=== PATIENT | female | born 1935 | race Caucasian/White ===

== ENCOUNTER 2022-11-30 07:55 | Day surgery (SDC) | payer MEDICARE, OTHER ==
[2022-11-30] VITALS (7 sets, daily range): BP systolic 99–132; BP diastolic 43–95; PULSE 73–89; RESP 16; TEMP 98.5; O2SAT 94–97
[~2022-11-30] VITALS: Ht 152.4 cm; Wt 68.6 kg
[2022-11-30] MEDS ORDERED: VITA0.4T18 PO (08:32)
[2022-11-30] MEDS ORDERED: FURO40TA4 PO (08:32)
[2022-11-30] MEDS ORDERED: LEVO112T5 PO (08:32)
[2022-11-30] MEDS ORDERED: ASCO-283 PO (08:32)
[2022-11-30 12:14] LABS: GLUCOSE,BODY FLUID 99 MG/DL; LDH,BODY FLUID 83 U/L; TOTAL PROTEIN,BODY FLUID 2.7 G/DL
[2022-11-30 12:58] LABS: LYMPHOCYTES,BODY FLUID 64 %; MONOCYTES,BODY FLUID 22 %; NEUTROPHILS,BODY FLUID 14 %
[2022-11-30 12:59] LABS: BFAPPEAR HAZY; BFCOLOR YELLOW; BFSOURCE LEFT PLEURAL FLD; BFVOLUME 58 ML
[2022-11-30 13:00] LABS: BF RBC COUNT 390 /CU MM; BF WBC COUNT 225 /CU MM (0-1000)
== END 2022-11-30 11:18 | disposition home or self-care (01) ==
LOC: SSTAY O 07:55
PROVIDERS: ATTEND Radiology Vascular & Interventional Radiology
DX: J90 Pleural effusion, not elsewhere classified (principal); E78.5 Hyperlipidemia, unspecified; E03.9 Hypothyroidism, unspecified; I25.10 Atherosclerotic heart disease of native coronary artery without angina pectoris; Z98.890 Other specified postprocedural states; Z79.899 Other long term (current) drug therapy
CPT/HCPCS: 32555; 82945; 83615; 84157; 87070; 89051; C1729

== ENCOUNTER 2023-03-29 07:22 | Observation (INO) | payer MEDICARE, OTHER ==
[~2023-03-29] VITALS: Ht 165.1 cm; Wt 69.1 kg
[2023-03-29] VITALS (28 sets, daily range): BP systolic 103–177; BP diastolic 47–113; PULSE 56–80; RESP 8–22; TEMP 97.6; O2SAT 92–100
[~2023-03-29 07:22] MED LIST: ASCO-283 PO; FURO40TA4 PO; LEVO112T5 PO; VITA0.4T18 PO
[2023-03-29] MEDS ORDERED: normal saline 1000ml 1,000 ML IV SCH ×2 (07:50→12:30)
[2023-03-29] MEDS ORDERED: LISI5TAB22 PO (07:51)
[2023-03-29] MEDS ORDERED: ASPI-1265 PO (07:51)
[2023-03-29] MEDS ORDERED: CARV3.1244 PO (07:51)
[2023-03-29 08:14] LABS: BASOPHILS % (AUTO) 0.5 % (0-1); EOSINOPHILS # (AUTO) 0.2 X10'3 (0-0.9); EOSINOPHILS % (AUTO) 4.3 % (0-6); HEMATOCRIT 40.1 % (35.0-45.0); HEMOGLOBIN 13.3 g/dl (12.0-16.0); LYMPHOCYTES # (AUTO) 1.5 X10'3 (1.1-4.8); LYMPHOCYTES % (AUTO) 31.1 % (21-51); MEAN CORPUSCULAR HEMOGLOBIN 30.3 PG (27.0-31.0); MEAN CORPUSCULAR HGB CONC 33.3 g/dL (33.0-36.5); MEAN CORPUSCULAR VOLUME 91.1 FL (78-98); MEAN PLATELET VOLUME 7.3 FL (7.4-10.4); MONOCYTES % (AUTO) 20.5 % (2-12); NEUTROPHILS # (AUTO) 2.1 X10'3 (1.8-7.7); NEUTROPHILS % (AUTO) 43.6 % (42-75); PLATELET COUNT 185 X10'3 (140-440); RED CELL DISTRIBUTION WIDTH 16.5 % (11.5-14.5); WHITE BLOOD COUNT 4.7 X10'3 (4.5-11.0)
[2023-03-29] MEDS: diphenhydrAMINE 25mg capsule PO PRN (08:19)
[2023-03-29 08:26] LABS: ALBUMIN 3.1 G/DL (3.4-5.0); ANION GAP 9 (8-16); BLOOD UREA NITROGEN 33 MG/DL (7-18); BUN/CREATININE RATIO 30.6 (10.0-20.0); CHLORIDE 105 MMOL/L (99-107); CREATININE 1.08 MG/DL (0.40-0.90); GLUCOSE 93 MG/DL (70-104); MAGNESIUM 1.8 MG/DL (1.5-2.4); SODIUM 140 MMOL/L (135-145); TOTAL CARBON DIOXIDE 25.6 MMOL/L (24-32); eCRCL 33 ML/MIN; eGFR 48 ML/MIN
[2023-03-29 08:36] LABS: PROTHROMBIN TIME 10.9 SECONDS (9.0-12.0)
[2023-03-29] MEDS ORDERED: LIDOcaine 1% 30ml preserv. free vial ONE (09:27)
[2023-03-29] MEDS ORDERED: iohexol 350 MG/ML 50ML vial IV ONE ×2 (09:32→10:53)
[2023-03-29] MEDS ORDERED: iohexol 350MG/ML 100ml bottle IV ONE ×2 (09:32→11:08)
[2023-03-29] MEDS ORDERED: midazolam 1 mg/ML 2ml injection ONE ×2 (09:36→11:40)
[2023-03-29] MEDS ORDERED: fentaNYL/PF 50MCG/1 ML 2ML syringe ONE (09:36)
[2023-03-29] MEDS ORDERED: heparin 1,000unit/ml 10ml vial 10 ML ONE (11:12)
[2023-03-29] MEDS ORDERED: atropine 0.1mg/ml 10ml syringe ONE (11:13)
[2023-03-29] MEDS ORDERED: ticagrelor 90mg tablet ONE (11:53)
[2023-03-29] MEDS ORDERED: ondansetron/PF 4mg/2ml inj IV PRN (12:30)
[2023-03-29] MEDS ORDERED: HYDROcodone/acetaminophen 5mg/325mg tablet PO PRN (12:35)
[2023-03-29] MEDS ORDERED: proCHLORperazine 10 MG/2 ml inj IV PRN (12:35)
[2023-03-29] MEDS ORDERED: HYDROcodone/acetaminophen 10/325mg tab PO PRN (12:35)
[2023-03-29] MEDS: furosemide 20 MG/2 ML vial IV ONE (14:40)
[2023-03-29] MEDS: ticagrelor 90mg tablet PO SCH (18:11)
[2023-03-29] MEDS: carVEDilol 3.125mg tablet PO SCH (21:56)
[2023-03-30 02:00] VITALS: BP 116/58; PULSE 75; RESP 19; TEMP 97.1; O2SAT 94
[2023-03-30] MEDS: ascorbic acid 500mg tablet PO SCH (08:14)
[2023-03-30] MEDS: levoTHYROXINE 112mcg tablet PO SCH (08:14)
[2023-03-30] MEDS: vitamin B comp w/Vit. C tab 1 TAB TABLET PO SCH (08:14)
[2023-03-30] MEDS: aspirin 81mg tab.chew PO SCH (08:14)
[2023-03-30] MEDS: furosemide 40mg tablet PO SCH (08:14)
[2023-03-30 08:16] VITALS: BP_SYST 124; PULSE 84
[2023-03-30] MEDS: lisinopril 5mg tablet PO SCH (08:16)
[2023-03-30] MEDS ORDERED: TICA90TA PO (09:26)
[2023-03-30] MEDS ORDERED: EZET10TA48 PO (09:32)
== END 2023-03-30 10:34 | disposition home or self-care (01) ==
LOC: SSTAY O 07:22 → INTOOBSV 18:09 → PCU 3S 18:09
PROVIDERS: ADMIT Internal Medicine Cardiovascular Disease; ATTEND Internal Medicine Cardiovascular Disease
DX: I25.10 Atherosclerotic heart disease of native coronary artery without angina pectoris (principal); I42.9 Cardiomyopathy, unspecified; Z79.899 Other long term (current) drug therapy
CPT/HCPCS: 80048; 83735; 85025; 85610; 93005; 93459; 96374; C1874; C9604; G0378; J1644; J1940; J2250; J3010; J3490; J7030; Q0163; Q9967; 93458; 99152; 99153; A4314; A6258; C1725; C1751; C1760; C1769; C1894; C9600; C9601; J0461

== ENCOUNTER 2023-06-03 06:39 | Day surgery (SDC) | payer MEDICARE, OTHER ==
[2023-06-03] VITALS (9 sets, daily range): BP systolic 119–169; BP diastolic 42–96; PULSE 15–79; RESP 14–17; TEMP 98; O2SAT 95–98
[~2023-06-03] VITALS: Ht 152.4 cm; Wt 69.4 kg
[~2023-06-03 06:39] MED LIST changes: +ASPI-1265 PO; +CARV3.1244 PO; +EZET10TA48 PO; +LISI5TAB22 PO; +TICA90TA PO
[2023-06-03] MEDS ORDERED: CLOP75TA34 PO (07:11)
[2023-06-03 07:45] LABS: BASOPHILS % (AUTO) 0.5 % (0-1); EOSINOPHILS # (AUTO) 0.1 X10'3 (0-0.9); EOSINOPHILS % (AUTO) 2.4 % (0-6); HEMATOCRIT 37.1 % (35.0-45.0); HEMOGLOBIN 12.6 g/dl (12.0-16.0); LYMPHOCYTES % (AUTO) 40.5 % (21-51); MEAN CORPUSCULAR HGB CONC 33.9 g/dL (33.0-36.5); MEAN CORPUSCULAR VOLUME 94.5 FL (78-98); MEAN PLATELET VOLUME 7.8 FL (7.4-10.4); MONOCYTES # (AUTO) 0.7 X10'3 (0-0.9); MONOCYTES % (AUTO) 14.9 % (2-12); NEUTROPHILS # (AUTO) 2.1 X10'3 (1.8-7.7); NEUTROPHILS % (AUTO) 41.7 % (42-75); PLATELET COUNT 164 X10'3 (140-440); RED BLOOD COUNT 3.93 X10'6 (4.20-5.60); RED CELL DISTRIBUTION WIDTH 15.1 % (11.5-14.5); WHITE BLOOD COUNT 4.9 X10'3 (4.5-11.0)
[2023-06-03 07:51] LABS: INR 1.1 INR; PROTHROMBIN TIME 11.3 SECONDS (9.0-12.0)
[2023-06-03 07:54] LABS: ALBUMIN 2.8 G/DL (3.4-5.0); ANION GAP 6 (8-16); BLOOD UREA NITROGEN 28 MG/DL (7-18); BUN/CREATININE RATIO 26.7 (10.0-20.0); CHLORIDE 108 MMOL/L (99-107); CREATININE 1.05 MG/DL (0.40-0.90); GLUCOSE 78 MG/DL (70-104); MAGNESIUM 1.6 MG/DL (1.5-2.4); POTASSIUM 4.2 MMOL/L (3.5-5.1); SODIUM 142 MMOL/L (135-145); TOTAL CARBON DIOXIDE 27.8 MMOL/L (24-32); eCRCL 27 ML/MIN; eGFR 49 ML/MIN
[2023-06-03] MEDS ORDERED: iohexol 350 MG/ML 50ML vial IV ONE (08:49)
[2023-06-03] MEDS ORDERED: fentaNYL/PF 50MCG/1 ML 2ML syringe ONE (08:49)
[2023-06-03] MEDS ORDERED: vancomycin 1,000mg inj ONE (08:49)
[2023-06-03] MEDS ORDERED: LIDOCAINE 2%/EPI 1:100,000 inj. Multi-dose 20 ML VIAL ONE (08:49)
[2023-06-03] MEDS ORDERED: midazolam 1 mg/ML 2ml injection ONE (08:49)
[2023-06-03] MEDS: vancomycin/NS 1 GM in NS 250 ML IV ONE (09:18)
[2023-06-03] MEDS ORDERED: normal saline 1,000 ML IV SCH (12:20)
[2023-06-04] MEDS ORDERED: cefazolin 2gm/D5W 100mL 100 ML IV ONE (05:30)
[2023-06-04] MEDS ORDERED: normal saline 1000ml 1,000 ML IV SCH (05:30)
== END 2023-06-03 14:35 | disposition home or self-care (01) ==
LOC: SSTAY O 06:39
PROVIDERS: ATTEND Internal Medicine Cardiovascular Disease
DX: I44.7 Left bundle-branch block, unspecified (principal); I42.0 Dilated cardiomyopathy; I25.10 Atherosclerotic heart disease of native coronary artery without angina pectoris; Z79.899 Other long term (current) drug therapy
CPT/HCPCS: 33208; 33225; 36415; 71046; 80048; 83735; 85025; 85610; 93005; 99152; 99153; C1785; C1898; C1900; J2250; J3010; J3370; J7030; Q9967; 33249; A4565; C1769; C2621